=== PATIENT | male | born 1990 | race Caucasian/White ===

== ENCOUNTER 2019-05-14 07:33 | Emergency (ER) | payer OTHER ==
[2019-05-14 07:52] VITALS: BP 127/81
--- NOTE | 2019-05-14 08:13 | UC ---
Throat Pain/Nasal Inocente HPI - HPI Summary HPI Summary: 28-year-old male comes in with a chief complaint of sore throat. The gone for about 2 days. He does have some rhinorrhea which is green. Some ear pressure. No fevers measured. No cough or chest congestion no shortness of breath. - History of Current Complaint Chief Complaint: UCRespiratory Stated Complaint: SORE THROAT Time Seen by Provider: 05/14/19 07:53 Pain Intensity: 3 - Allergies/Home Medications Allergies/Adverse Reactions: Allergies Allergy/AdvReac Type Severity Reaction Status Date / Time diatrizoate meglumine Allergy Severe Vomiting Verified 05/14/19 07:45 [From Gastrografin] diatrizoate sodium Allergy Severe Vomiting Verified 05/14/19 07:45 [From Gastrografin] Iodinated Contrast Media Allergy Severe Vomiting Verified 05/14/19 07:45 iohexol Allergy Severe Vomiting Verified 05/14/19 07:45 Home Medications: Home Medications Cetirizine* [ZyrTEC 10 MG TAB*] 10 mg PO DAILY 05/14/19 [History Confirmed 05/14] PMH/Surg Hx/FS Hx/Imm Hx Previously Healthy: Yes - Surgical History Surgical History: Yes Surgery Procedure, Year, and Place: HYDROCELE REPAIR 1989. PILONIDAL CYST REMOVED 2009. LEFT INGUINAL RADICAL ORCHECTOMY 04/2013. PORT IN CHEST 04/2013. RETROPERTONIEAL LYMPH NODE DISECTION 09/12/13 - Family History Known Family History: Negative: Blood Disorder - Social History Alcohol Use: Rare Substance Use Type: None Smoking Status (MU): Never Smoked Tobacco - Immunization History Most Recent Tetanus Shot: within 5 years Review of Systems All Other Systems Reviewed And Are Negative: Yes Constitutional: Positive: Negative Skin: Positive: Negative Eyes: Positive: Negative ENT: Positive: Sore Throat, Ear Ache, Nasal Discharge, Sinus Congestion Respiratory: Positive: Negative Cardiovascular: Positive: Negative Gastrointestinal: Positive: Negative Motor: Positive: Negative Neurovascular: Positive: Negative Musculoskeletal: Positive: Negative Neurological: Positive: Negative Psychological: Positive: Negative Is Patient Immunocompromised?: No Physical Exam Triage Information Reviewed: Yes Appearance: Well-Appearing, No Pain Distress, Well-Nourished Vital Signs: Initial Vital Signs Temp 98.2 F 05/14/19 07:46 Pulse 56 05/14/19 07:46 Resp 16 05/14/19 07:46 BP 127/81 05/14/19 07:46 Pulse Ox 99 05/14/19 07:46 Vital Signs Reviewed: Yes Eye Exam: Normal Eyes: Positive: Conjunctiva Clear ENT: Positive: Pharyngeal erythema, Nasal congestion, TMs normal Neck: Positive: Supple Respiratory: Positive: Lungs clear, Normal breath sounds, No respiratory distress Cardiovascular: Positive: RRR Musculoskeletal: Positive: Strength Intact, ROM Intact Neurological: Positive: Alert Psychological: Positive: Age Appropriate Behavior Skin Exam: Normal Throat Pain/Nasal Course/Dx - Course Course Of Treatment: RS neg. Sx treatment. Reeval if worse. - Differential Dx/Diagnosis Provider Diagnosis: Pharyngitis Discharge ED - Sign-Out/Discharge Documenting (check all that apply): Patient Departure All imaging exams completed and their final reports reviewed: No Studies - Discharge Plan Condition: Stable Disposition: HOME Patient Education Materials: Pharyngitis (ED) Referrals: Ozzie Galvin MD [Primary Care Provider] - Additional Instructions: FOLLOW UP WITH YOUR DOCTOR IF NOT COMPLETELY IMPROVED. GET REEVALUATED SOONER IF WORSE OR ANY QUESTIONS OR CONCERNS. - Billing Disposition and Condition Condition: STABLE Disposition: Home
== END 2019-05-14 08:18 | disposition home or self-care (01) ==
LOC: UCCORT 07:33
DX: J02.9 Acute pharyngitis, unspecified (principal)
CPT/HCPCS: 87651; 99201; G0463